=== PATIENT | male | born 1985 | race Caucasian/White ===

== ENCOUNTER 2021-05-18 13:40 | Emergency (ER) | payer OTHER, SELFPAY ==
--- NOTE | ~2021-05-18 | CT_ITS ---
EXAMINATION: CT abdomen pelvis w con DATE: 05/18/2021 16:52 INDICATION: Left lower quadrant abdominal pain. Nausea and vomiting. TECHNIQUE: Computed tomography (CT) of the abdomen and pelvis was performed with 100 mL Omnipaque 350 intravenous contrast. Automated exposure control and iterative reconstruction technique were employe d. The dose-length product was 836.57 mGy-cm. COMPARISON: None. FINDINGS: The visualized portions of the lung bases demonstrate mild atelectasis. No pleural effusion . The heart size is normal. No pericardial effusion. The liver, gallbladder, spleen, pancreas, adrena l glands, and right kidney are normal. There is a delayed left-sided contrast nephrogram. There are 4 mm and 1 mm stones in left kidney. There is mild left hydronephrosis and hydroureter. There is a 4 m m stone at left ureterovesicular junction. There are no dilated loops of bowel. The appendix is jeanne l. There are no pathologically enlarged lymph nodes. There is no free intraperitoneal fluid. There is moderate thoracolumbar spondylosis. IMPRESSION: 1. 4 mm stone at left ureterovesicular junction with mild left hydronephrosis and hydroureter. 2. 4 mm and 1 mm nonobstructing left kidney stones. Reviewed, dictated and finalized at location A. IMPRESSION: 1. 4 mm stone at left ureterovesicular junction with mild left hydronephrosis a nd hydroureter. 2. 4 mm and 1 mm nonobstructing left kidney stones.
[2021-05-18 13:44] VITALS: BP 139/79; PULSE 71; RESP 18; TEMP 36.2; O2SAT 100
[2021-05-18 13:57] LABS: Basophils Percent Auto 0.2 % (0.2-1.2); Eosinophils Percent Auto 0.1 % (0-4.4); Hematocrit 46.1 % (42.0-52.0); Hemoglobin 15.8 g/dL (14.0-18.0); Immature Granulocyte Absolute 0.06 K/mm3 (0.00-0.031); Immature Granulocyte Percent A 0.5 % (0-0.5); Lymphocytes Absolute Auto 1.22 K/mm3 (0.9-3.2); Lymphocytes Percent Auto 10.3 % (18.3-44.2); Mean Corpuscular HGB Conc 34.3 g/dl (32-36); Mean Corpuscular Hemoglobin 30.8 pg (26-34); Mean Corpuscular Volume 89.9 fl (80-100); Mean Platelet Volume 8.7 fl (7.4-10.4); Monocytes Absolute Auto 0.4 K/mm3 (0.1-0.6); Monocytes Percent Auto 3.2 % (2.6-8.5); Neutrophils Absolute Auto 10.1 K/mm3 (1.3-6.7); Neutrophils Percent Auto 85.7 % (45.5-73.1); Platelet Count Result 268 k/mm3 (150-375); Red Blood Count 5.13 M/mm3 (4.6-6.20); Red Cell Distribution Width 11.9 % (11.5-14.5); White Blood Count 11.8 K/mm3 (4.5-10.0)
[2021-05-18 14:20] LABS: Add Urine Microscopic? YES; Amorphous Sediment Urine Few; Appearance Urine Cloudy (Clear); Bacteria Urine Trace /hpf; Bilirubin Urine Negative (Negative); Blood Urine 3+ (Negative); Color Urine Yellow (Yellow); Glucose Urine UA Negative (Negative); Ketones Urine 1+ mg/dL (Negative); Leukocyte Esterase Ur Negative LEU/UL (Negative); Mucus Urine Heavy /lpf; Nitrate Urine Negative (Negative); Protein Urine 2+ mg/dL (Negative); RBC Urine >75 /hpf (0-2); Specific Grav Ur 1.029 (1.001-1.035); Urobilinogen Urine Negative mg/dL (<2.0); WBC Urine 16-20 /hpf
[2021-05-18 14:57] LABS: Alanine Aminotransferase 26 U/L (4-50); Albumin Level 4.9 g/dL (3.5-5.1); Alkaline Phosphatase 53 U/L (38-126); Anion Gap 11 mmol/L (8-16); Aspartate Amino Transferase 33 U/L (17-59); Blood Urea Nitrogen 22 mg/dL (9-20); Calcium 9.7 mg/dL (8.4-10.2); Carbon Dioxide 25 mmol/L (22-30); Chloride 105 mmol/L (98-107); Estimated CRCL calculation 78 ml/min; Estimated Glomerular Filt Rate 58; Glucose 110 mg/dL (75-110); Potassium 4.6 mmol/L (3.4-5.0); Sodium 141 mmol/L (137-145)
[2021-05-18 14:58] LABS: Bilirubin,Total 0.9 mg/dL (0.2-1.3); Lipase 217 U/L (23-300)
[2021-05-18 15:58] VITALS: BP 141/80; PULSE 55; RESP 19; O2SAT 100
[2021-05-18 16:15] VITALS: BP 137/84; PULSE 73; RESP 22; O2SAT 100
--- NOTE | 2021-05-18 16:21 | ED.ABDPAIN ---
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 Patient denies any fever, chills, diarrhea, history of similar symptoms. Patient also denied any radiation of pain. Currently feeling a little bit better. The pain like pressure, gas-like feeling Related Data Home Medications Medication Instructions Recorded Confirmed No Home Medications 05/18/21 05/18/21 Allergies Allergy/AdvReac Type Severity Reaction Status Date / Time No Known Allergies Allergy Verified 05/18/21 15:52 Review of Systems Review of Systems: Narrative: CONSTITUTIONAL: Denies fever, chills, or sweats. EYES: Denies visual changes, redness, or discharge. ENT: Denies rhinorrhea, congestion, sore throat, or otalgia. CARDIOVASCULAR: Denies chest pain, palpitations, or edema. RESPIRATORY: Denies cough or dyspnea. GASTROINTESTINAL: Denies abdominal pain, nausea, vomiting, or diarrhea. GENITOURINARY: Denies dysuria or hematuria. SKIN: Denies rash or itching. MUSCULOSKELETAL: Denies back pain, joint pain, or myalgia. NEUROLOGIC: Denies headache, numbness, or weakness. PSYCHIATRIC: Denies anxiety or depression. Exam Narrative: Exam Narrative: General appearance: Well-developed, well-nourished Skin: Normal color Head: Normocephalic, nontraumatic Eyes: Clear conjunctiva ENT: Oropharynx normal, ears normal, nose normal Neck: Supple, nontender Chest and respiratory: Airway patent, no respiratory distress, no accessory muscle use Heart: Regular rate/rhythm Abdomen: Soft, nontender, no organomegaly, quiet bowel sounds Vascular: Normal peripheral pulses, normal capillary refill. Musculoskeletal: Normal range of motion, nontender back Neurologic: Alert and oriented ?3, [employer] is normal as tested, no gross motor deficit Course Course Emergency Course: Stable Vital Signs Vital signs: Vital Signs Temperature 36.2 C L 05/18/21 13:44 Pulse Rate 71 05/18/21 13:44 Respiratory Rate 18 05/18/21 13:44 Blood Pressure 139/79 05/18/21 13:44 Pulse Oximetry 100 05/18/21 13:44 Temperature 36.2 C L 05/18/21 13:44 Pulse Rate 73 05/18/21 16:15 Respiratory Rate 22 H 05/18/21 16:15 Blood Pressure 137/84 05/18/21 16:15 Pulse Oximetry 100 05/18/21 16:15 MDM - Abdominal Pain MDM Narrative Medical decision making narrative: Kidney stone, urinary tract infection, constipation, diverticulitis is my concern. Labs, CT abdomen pelvis with IV contrast, IV fluid ordered. Further plan to follow Differential Diagnosis Differential diagnosis: Likely abdominal pain, calculus of kidney, constipation and diverticulitis Lab Data Result diagrams: 05/18/21 13:49 05/18/21 13:49 Labs: Lab Results 05/18/21 05/18/21 05/18/21 Range/Units 13:49 13:49 13:52 WBC 11.8 H (4.5-10.0) K/mm3 RBC 5.13 (4.6-6.20) M/mm3 Hgb 15.8 (14.0-18.0) g/dL Hct 46.1 (42.0-52.0) % MCV 89.9 (80-100) fl MCH 30.8 (26-34) pg MCHC 34.3 (32-36) g/dl RDW 11.9 (11.5-14.5) % Plt Count 268 (150-375) k/mm3 MPV 8.7 (7.4-10.4) fl Immature Gran % (Auto) 0.5 (0-0.5) % Neut % (Auto) 85.7 H (45.5-73.1) % Lymph % (Auto) 10.3 L (18.3-44.2) % Nye % (Auto) 3.2 (2.6-8.5) % Eos % (Auto) 0.1 (0-4.4) % Baso % (Auto) 0.2 (0.2-1.2) % Lymph # (Auto) 1.22 (0.9-3.2)
[2021-05-18] MEDS: SODIUM CHLORIDE 0.9% IV 1,000 ML 999 ML IV CONT (16:36)
[2021-05-18] MEDS: KETOROLAC 30 MG/ML VIAL (*BKC) IV PUSH (17:20)
[2021-05-18] MEDS: TAMSULOSIN HCL 0.4 MG CAPSULE PO (17:21)
[2021-05-18 18:35] VITALS: BP 127/78; PULSE 72; RESP 16; TEMP 36.8; O2SAT 99
== END 2021-05-18 18:35 | disposition home or self-care (01) ==
PROVIDERS: Emergency Provider Emergency Medicine; PCP Family Medicine
DX: N20.0 Calculus of kidney (principal)
CPT/HCPCS: 36415; 74177; 80053; 81001; 83690; 85025; 87086; 96361; 96374; 99284; A9270; J1885; J7030; Q9967

== ENCOUNTER 2021-09-20 12:19 | Outpatient (CLI) | payer OTHER, SELFPAY ==
--- NOTE | ~2021-09-20 | XR_ITS ---
EXAMINATION: XR abdomen/kub 1V INDICATION: Left-sided kidney stone TECHNIQUE: Supine views of the abdomen were obtained on 2 radiographs. COMPARISON: CT, 05/18/2021 FINDINGS: There is a 4 mm stone in the left kidney lower pole. No additional urolithiasis is identifi ed. The bowel gas pattern is normal. There is moderate lumbar spondylosis. IMPRESSION: 1. Stable left nephrolithiasis. Reviewed, dictated and finalized at location A.
== END 2021-09-20 12:20 | disposition home or self-care (01) ==
LOC: ANHIMG 12:23
PROVIDERS: PCP Family Medicine; Visit Provider Urology
DX: N20.0 Calculus of kidney (principal)
CPT/HCPCS: 74018

== ENCOUNTER 2022-06-23 11:17 | Emergency (ER) | payer OTHER, SELFPAY ==
--- NOTE | ~2022-06-23 | CT_ITS ---
EXAMINATION: CT abdomen pelvis wo con DATE: 06/23/2022 14:44 INDICATION: Left abdominal pain; history of kidney stones. TECHNIQUE: Computed tomography (CT) of the abdomen and pelvis was performed without intravenous contr ast. Automated exposure control and iterative reconstruction technique were employed. Exam dose: 583 .71 mGy-cm total exam DLP. COMPARISON: 05/18/2021 CT abdomen pelvis 09/20/2021 KUB FINDINGS: There is minimal atelectasis at the dependent right lower lobe. Normal heart size. No peric ardial or pleural effusion. The liver, gallbladder, bile ducts, spleen, pancreas, pancreatic duct and adrenal glands are unremark able. No renal mass lesion is evident. No right urinary tract calculus is evident. There is a 4.7 x 4.7 mm calculus obstructing the very proximal left ureter at the L3 level, with left nephromegaly, mild to moderate hydronephrosis and perinephric stranding. The urinary bladder and prostate gland are unremarkable except for minimal prostate calcification. Normal appendix. Mild colonic diverticulosis; no CT evidence of diverticulitis. No bowel obstruction, bowel wall thickening, pneumatosis or intraperitoneal free air. Small fat-containing umbilical hernia. Normal caliber of the abdominal aorta. No intraperitoneal or retroperitoneal or pelvic mass lesion or adenopathy or ascites. Degenerative spurring of the thoracic spine. Prominent degenerative disc disease at L4-5 and L5-S1. No suspicious osteolytic or osteoblastic lesions are noted. IMPRESSION: 4.7 mm obstructing proximal left ureteral calculus with left nephromegaly, mild to moder ate hydronephrosis and perinephric stranding Reviewed, dictated and finalized at [facility]. Reviewed, dictated and finalized at location B. IMPRESSION: 4.7 mm obstructing proximal left ureteral calculus with left nephr omegaly, mild to moderate hydronephrosis and perinephric stranding
--- NOTE | ~2022-06-23 | XR_ITS ---
EXAM: XR abdomen/kub 1V DATE: 06/23/2022 15:38 HISTORY: left flank pain. hx kidney stones . COMPARISON: 09/20/2021. CT abdomen pelvis, 06/23/2022. FINDINGS: Clear lung bases. Normal bowel gas pattern. No organomegaly. 4 mm left UPJ stone. Regional bones and soft tissues normal for age. IMPRESSION: 4 mm left UPJ stone, unchanged position. Reviewed, dictated and finalized at location K.
[2022-06-23 11:22] VITALS: BP 141/86; PULSE 79; RESP 14; TEMP 36.2; O2SAT 100
[2022-06-23 11:36] LABS: Basophils Percent Auto 0.2 % (0.2-1.2); Eosinophils Percent Auto 0.2 % (0-4.4); Hemoglobin 15.1 g/dL (14.0-18.0); Immature Granulocyte Absolute 0.03 K/mm3 (0.00-0.031); Immature Granulocyte Percent A 0.3 % (0-0.5); Lymphocytes Absolute Auto 1.68 K/mm3 (0.9-3.2); Lymphocytes Percent Auto 16.6 % (18.3-44.2); Mean Corpuscular HGB Conc 32.8 g/dl (32-36); Mean Corpuscular Hemoglobin 30.1 pg (26-34); Mean Corpuscular Volume 91.6 fl (80-100); Mean Platelet Volume 8.7 fl (7.4-10.4); Monocytes Absolute Auto 0.5 K/mm3 (0.1-0.6); Monocytes Percent Auto 4.9 % (2.6-8.5); Neutrophils Absolute Auto 7.9 K/mm3 (1.3-6.7); Neutrophils Percent Auto 77.8 % (45.5-73.1); Platelet Count Result 255 k/mm3 (150-375); Red Blood Count 5.02 M/mm3 (4.6-6.20); Red Cell Distribution Width 12.9 % (11.5-14.5); White Blood Count 10.2 K/mm3 (4.5-10.0)
[2022-06-23 11:54] LABS: Alanine Aminotransferase 26 U/L (6-50); Albumin Level 4.8 g/dL (3.5-5.1); Alkaline Phosphatase 74 U/L (38-126); Anion Gap 11 mmol/L (8-16); Aspartate Amino Transferase 25 U/L (17-59); Bilirubin,Total 0.7 mg/dL (0.2-1.3); Blood Urea Nitrogen 22 mg/dL (9-20); Carbon Dioxide 25 mmol/L (22-30); Chloride 104 mmol/L (98-107); Estimated CRCL calculation 92 ml/min; Estimated Glomerular Filt Rate > 60; Glucose 107 mg/dL (65-110); Potassium 4.6 mmol/L (3.4-5.0); Sodium 140 mmol/L (137-145)
[2022-06-23 12:13] LABS: Add Urine Microscopic? YES; Appearance Urine Clear (Clear); Bilirubin Urine Negative (Negative); Blood Urine 1+ (Negative); Color Urine Yellow (Yellow); Glucose Urine UA Negative (Negative); Ketones Urine Negative (Negative); Leukocyte Esterase Ur Negative LEU/UL (Negative); Mucus Urine Rare /lpf; Nitrate Urine Negative (Negative); Protein Urine Negative (Negative); Specific Grav Ur >= 1.030 (1.001-1.035); Urobilinogen Urine 0.2 mg/dL (<2.0); WBC Urine 0-3 /hpf
--- NOTE | 2022-06-23 15:36 | ED.ABDPAIN ---
HPI - Abdominal Pain General Chief Complaint: Abdominal Pain Stated Complaint: Lower left abdominal pain, possible kidney stone Time Seen by Provider: 06/23/22 14:32 Source: patient Mode of arrival: ambulatory Limitations: no limitations History of Present Illness HPI narrative: This is a 36 year old male that presents to the ER for left flank pain. Reports the pain radiates into the abdomen. Ongoing since this morning. Associated with nausea and vomiting. Reports history of kidney stones and that this pain felt similar. Denies fever. Related Data Allergies Allergy/AdvReac Type Severity Reaction Status Date / Time No Known Allergies Allergy Verified 05/18/21 15:52 Review of Systems Review of Systems: CONSTITUTIONAL: Denies fever GASTROINTESTINAL: Reports abdominal pain, nausea, vomiting GENITOURINARY: Denies dysuria or hematuria. All systems reviewed & are unremarkable except as noted in HPI and below PMFSH Past Medical History Medical History (Updated 06/23/22 @ 15:48 by Indu Cox PA-C) No active medical problems Social History Social History (Updated 06/23/22 @ 15:47 by Indu Cox PA-C) Smoking status: Never smoker Exam Narrative: GENERAL: Well-appearing, well-nourished, and in no acute distress. HEAD: Normocephalic, atraumatic. EYES: EOMI. CHEST: Clear to auscultation. No respiratory distress. No wheezes rales or rhonchi HEART: Regular rate and rhythm. No murmur heard. Normal peripheral pulses. ABDOMEN: Soft, nontender, nondistended, normal active bowel sounds. No CVA tenderness EXTREMITIES: Normal range of motion. No edema. SKIN: Warm, dry, no rash. NEURO: No focal deficits. Alert and oriented x3. PSYCH: Normal mood and affect Course Consultations Consultation #1: Spoke with Dr. Tello about patient and work-up who will follow-up in clinic. Date: 06/23/22 Vital Signs Vital signs: Vital Signs Temperature 97.2 F L 06/23/22 11:22 Pulse Rate 79 06/23/22 11:22 Respiratory Rate 14 06/23/22 11:22 Blood Pressure 141/86 H 06/23/22 11:22 Pulse Oximetry 100 06/23/22 11:22 Oxygen Delivery Room Air 06/23/22 11:22 Temperature 97.2 F L 06/23/22 11:22 Pulse Rate 79 06/23/22 11:22 Respiratory Rate 14 06/23/22 11:22 Blood Pressure 141/86 H 06/23/22 11:22 Pulse Oximetry 100 06/23/22 11:22 Oxygen Delivery Room Air 06/23/22 11:22 MDM - Abdominal Pain MDM Narrative Medical decision making narrative: Patient presents to the emergency department for left-sided abdominal pain present since this morning. He is afebrile and nontoxic-appearing. His vitals are stable. CBC and metabolic panel without concerning findings. UA without evidence of infection. Does show 3-[address] scan abdomen and pelvis shows a 4.7 mm obstructing proximal left ureteral calculus. KUB positively identifies the stone. Spoke with Dr. Tello about patient and work-up who will follow-up in clinic. He patient instructed to strain his urine, will start Flomax, pain medication as needed. He is to follow-up with urology. He was given warnings to return to the ER Lab Data Attestation: I reviewed the patient's lab results. Result diagrams: 06/23/22 11:30 06/23/22 11:30 Labs: Lab Results 06/23/22 06/23/22 06/23/22 Range/Units 11:30 11:30 11:48 WBC 10.2 H (4.5-10.0) K/mm3 RBC 5.02 (4.6-6.20) M/mm3 Hgb 15.1 (14.0-18.0) g/dL Hct 46.0 (42.0-52.0) % MCV 91.6 (80-100) fl MCH 30.1 (26-34) pg MCHC 32.8 (32-36) g/dl RDW 12.9 (11.5-14.5) % Plt Count 255 (150-375) k/mm3 MPV 8.7 (7.4-10.4) fl Immature Gran % (Auto) 0.3 (0-0.5) % Neut % (Auto) 77.8 H (45.5-73.1) % Lymph % (Auto) 16.6 L (18.3-44.2) % [place] % (Auto) 4.9 (2.6-8.5) % Eos % (Auto) 0.2 (0-4.4) % Baso % (Auto) 0.2 (0.2-1.2) % Lymph # (Auto) 1.68 (0.9-3.2) K/mm3 Placer # (Auto) 0.5 (0.1-0.6) K/mm3 Eos #
== END 2022-06-23 16:26 | disposition home or self-care (01) ==
PROVIDERS: Emergency Provider Emergency Medicine
DX: N13.2 Hydronephrosis with renal and ureteral calculous obstruction (principal)
CPT/HCPCS: 36415; 74018; 74176; 80053; 81001; 85025; 99284

== ENCOUNTER 2023-01-26 12:29 | Outpatient (CLI) | payer OTHER, SELFPAY ==
--- NOTE | ~2023-01-26 | XR_ITS ---
EXAMINATION: XR abdomen/kub 1V DATE: 01/26/2023 12:55 INDICATION: Left kidney stone. TECHNIQUE: A supine view of the abdomen on 2 radiographs was obtained. COMPARISON: Abdomen radiographs 06/23/2022, CT abdomen and pelvis 06/23/2022 FINDINGS: There is stool in the rectum, which is distended. The small bowel is normal in caliber. IMPRESSION: 1. No visible urolithiasis. 2. Distended rectum containing stool. Reviewed, dictated and finalized at location A. T OUTPUT CLERK
== END 2023-01-26 12:30 | disposition home or self-care (01) ==
PROVIDERS: Visit Provider Urology
DX: N20.0 Calculus of kidney (principal)
CPT/HCPCS: 74018